=== PATIENT | female | born 1955 | race Caucasian/White ===

== ENCOUNTER 2022-08-01 09:52 | Day surgery (SDC) | payer MEDICARE, OTHER ==
[2022-07-25 14:33] LABS: BASOPHILS % (AUTO) 0.7 % (0-1); EOSINOPHILS # (AUTO) 0.1 X10'3 (0-0.9); LYMPHOCYTES # (AUTO) 1.9 X10'3 (1.1-4.8); LYMPHOCYTES % (AUTO) 31.2 % (21-51); MEAN CORPUSCULAR HEMOGLOBIN 27.7 PG (27.0-31.0); MEAN CORPUSCULAR HGB CONC 32.3 g/dL (33.0-36.5); MEAN CORPUSCULAR VOLUME 85.6 FL (78-98); MEAN PLATELET VOLUME 9.3 FL (7.4-10.4); MONOCYTES # (AUTO) 0.4 X10'3 (0-0.9); NEUTROPHILS # (AUTO) 3.6 X10'3 (1.8-7.7); NEUTROPHILS % (AUTO) 60.1 % (42-75); PRE OP HEMATOCRIT 42.1 % (35.0-45.0); PRE OP HEMOGLOBIN 13.6 g/dL (12.0-16.0); PRE OP PLATELET COUNT 249 X10'3 (140-440); RED BLOOD COUNT 4.92 X10'6 (4.20-5.60); RED CELL DISTRIBUTION WIDTH 15.1 % (11.5-14.5)
[2022-07-25 14:37] LABS: ALBUMIN 3.8 G/DL (3.4-5.0); ALBUMIN/GLOBULIN RATIO 1.1 (1.1-1.5); ALKALINE PHOSPHATASE 58 IU/L (46-116); BLOOD UREA NITROGEN 17 MG/DL (7-18); BUN/CREATININE RATIO 21.3 (10.0-20.0); CALCIUM 9.2 MG/DL (8.5-10.1); CHLORIDE 105 MMOL/L (99-107); PRE OP ALT 18 U/L (30-65); PRE OP ANION GAP 8 (8-16); PRE OP AST 15 U/L (10-37); PRE OP BILIRUB, TOTAL 0.4 MG/DL (0.0-1.0); PRE OP GLUCOSE 94 MG/DL (70-104); PRE OP SODIUM 139 MMOL/L (135-145); TOTAL CARBON DIOXIDE 25.6 MMOL/L (24-32); TOTAL PROTEIN 7.3 G/DL (6.4-8.2); eGFR 71 ML/MIN
[~2022-08-01] VITALS: Ht 162.6 cm; Wt 76.3 kg
[~2022-08-01 09:52] MED LIST: ASHW300C2 PO; IBUP-1985 PO; SPIR25TA5 PO; [UNRECOGNIZED DRUG - CODE] PO; [UNRECOGNIZED DRUG - OTHER] TD; cefazolin 2gm/D5W 100mL 100 ML IV ONE; famotidine 20mg tablet PO ONE
[2022-08-01 10:25] VITALS: BP 119/73
[2022-08-01] MEDS: ringers solution, lacted 1,000 ML IV SCH ×2 (10:41→10:42)
[2022-08-01] MEDS ORDERED: TETRACAINE 0.5% 4 ML OPHTHALMIC DROPS ONE (10:52)
[2022-08-01] MEDS ORDERED: LIDOcaine 1% W/epiNEPHrine 1:100,000 20ml vial ONE (10:52)
[2022-08-01] MEDS ORDERED: fentaNYL/PF 50MCG/1 ML 2ML syringe ONE (10:56)
[2022-08-01] MEDS ORDERED: midazolam 1 mg/ML 2ml injection ONE (10:57)
[2022-08-01] MEDS ORDERED: ketamine 50mg/5ml syringe ONE (11:32)
[2022-08-01] MEDS ORDERED: propofol inj 20 ML IV ONE (11:52)
[2022-08-01 12:00] VITALS: BP 124/71
--- NOTE | 2022-08-01 12:00 | NUR ---
Received from OR via BED, accompanied by Anesthesiologist and report given by Anesthesiologist. PATIENT WAKING UP, NO S/S OF PAIN, V/S WNL, SCD ON, 20G TO LUE, DRESSING OVER AND STITCHING ABOVE EYES WITH OINTMENT AND NO OBSERVABLE DRAINAGE OR COMPLICATIONS OBSERVED
[2022-08-01 12:10] VITALS: BP 116/73
[2022-08-01 12:20] VITALS: BP 124/78
[2022-08-01 12:30] VITALS: BP 129/74
--- NOTE | 2022-08-01 12:32 | NUR ---
PATIENT A&OX4, DENIES PA PAIN, V/S WNL, SCD ON, 20G TO LUE, DRESSING OVER AND STITCHING ABOVE EYES WITH OINTMENT AND NO OBSERVABLE DRAINAGE OR COMPLICATIONS OBSERVED Addendum: 08/01/22 at 1232 by Jin Carmona RN INCOMPLETE WRONG TIME
[2022-08-01 12:40] VITALS: BP 131/76
--- NOTE | 2022-08-01 12:40 | NUR ---
PATIENT A&OX4, DENIES PAIN, V/S WNL, SCD OFF, 20G TO LUE D/C, DRESSING OVER EYE REMOVED AND STITCHING ABOVE EYES WITH OINTMENT ON AND NO OBSERVABLE DRAINAGE OR COMPLICATIONS OBSERVED. I HAVE REVIEWED D/C INSTRUCTIONS AND SHE HAS VERBALIZED UNDERSTANDING. PATIENT STATES NO DOUBLE VISION. STITCHING WELL ACCOMIDATED. PATIENT D/C HOME WITH OINTMENT AND BELONGINGS AND INSTRUCTIONS AND HER FRIEND GAVE TRANSPORT.
== END 2022-08-01 12:40 | disposition home or self-care (01) ==
LOC: PAS 09:52
PROVIDERS: ATTEND Specialist
DX: H02.831 Dermatochalasis of right upper eyelid (principal); H02.834 Dermatochalasis of left upper eyelid; E03.9 Hypothyroidism, unspecified; M19.90 Unspecified osteoarthritis, unspecified site; Z72.89 Other problems related to lifestyle; Z91.018 Allergy to other foods; Z98.890 Other specified postprocedural states; Z79.899 Other long term (current) drug therapy
CPT/HCPCS: 15823; 36415; 80053; 82948; 85025; 93005; A6402; J0690; J2250; J2704; J3010; J3490; J7030; J7120; Z7506; Z7512; A4215; A4618; A6410; A6449; A7000